=== PATIENT | female | born 1965 | race Caucasian/White ===

== ENCOUNTER 2020-01-09 15:29 | Emergency (ER) | payer BC ==
[2020-01-09 15:58] LABS: Influenza A Molecular Negative (Negative); Influenza B Molecular Negative (Negative)
--- NOTE | 2020-01-09 16:02 | ED ---
Influenza-Like Illness - HPI Summary HPI Summary: The patient is a 54-year-old female presenting to [facility] emergency department with a chief complaint of influenza-like symptoms since 01/04/2020. She reports that she visited her PCP when her symptoms began, and she was diagnosed with strep throat and was placed on Amoxicillin. Her throat pain has improved, but she is now suffering from fevers, severe headaches, photophobia and eye pain, and myalgias. There is increased neck pain than she experiences chronically. She called her PCP again yesterday and was told that these symptoms are also consistent with the strep throat, but she is concerned because she is unable to tolerate the pain. Symptoms are currently rated 8/10 in severity. She notes that she may have had the flu in December, but she was not tested. She also states that she often experiences headaches with sicknesses, and she suffers from sleeping disorders and pain in her neck. Past medical history significant for anxiety, right ovarian removal, tonsillectomy, . Nonsmoker, no alcohol use, no substance use. Medications reviewed. Allergies noted. - History of Current Complaint Chief Complaint: EDGeneral Time Seen by Provider: 01/09/20 15:47 Hx Obtained From: Patient Onset/Duration: Gradual Onset, Lasting Days, Still Present Severity: Moderate Associated Signs & Symptoms: Fever, Myalgia, Cough, Sore Throat, Headache - Allergy/Home Medications Allergies/Adverse Reactions: Allergies Allergy/AdvReac Type Severity Reaction Status Date / Time No Known Allergies Allergy Verified 01/09/20 15:38 PMH/Surg Hx/FS Hx/Imm Hx Endocrine/Hematology History: Denies: Hx Diabetes Cardiovascular History: Denies: Hx Hypercholesterolemia, Hx Hypertension, Hx Pacemaker/ICD Sensory History: Denies: Hx Hearing Aid Psychiatric History: Reports: Hx Anxiety Denies: Hx Panic Disorder - Surgical History Surgical History: Yes Surgery Procedure, Year, and Place: RT(?) OVARY REMOVED, ,TONSILS A CHILD, Infectious Disease History: No Infectious Disease History: Denies: Traveled Outside the [place] in Last 30 Days - Family History Known Family History: Negative: Cardiac Disease, Hypertension - Social History Alcohol Use: None Hx Substance Use: No Substance Use Type: Reports: None Hx Tobacco Use: No Smoking Status (MU): Never Smoked Tobacco Review of Systems Positive: Fever Positive: Photophobia, Other - bilateral eye pain Positive: Sore Throat Positive: Myalgia, Other - neck pain Positive: Headache All Other Systems Reviewed And Are Negative: Yes Physical Exam - Summary Physical Exam Summary: VITAL SIGNS: Reviewed. GENERAL: Patient is a well-developed and nourished female who is lying comfortable in the stretcher. Patient is not in any acute respiratory distress. HEAD AND FACE: No signs of trauma. No ecchymosis, hematomas or skull depressions. No sinus tenderness. EYES: PERRLA, EOMI x 2, No injected conjunctiva, no nystagmus. EARS: Hearing grossly intact. Ear canals and tympanic membranes are within normal limits. MOUTH: Dry oral mucosa. Pharyngeal erythema. No exudates. NECK: Supple, trachea is midline, no adenopathy, no JVD, no carotid bruit, no c- spine tenderness, neck with full ROM. CHEST: Symmetric, no tenderness at palpation. LUNGS: Clear to auscultation bilaterally. No wheezing or crackles. CVS: Regular rate and rhythm, S1 and S2 present, no murmurs or gallops appreciated. ABDOMEN: Soft, non-tender. No signs of distention. No rebound, no guarding, and no masses palpated. Bowel sounds are normal. EXTREMITIES: FROM in all major joints, no edema, no cyanosis or clubbing. NEURO: Alert and oriented x 3. No acute neurological deficits. Speech is normal and follows commands. SKIN: Dry and warm. GCS: 15. Triage Information Reviewed: Yes Vital Signs On Initial Exam: Initial Vitals Temp Pulse Resp BP Pulse Ox 101.7 F 106 19 143/106 97 01/09/20 15:34 01/09/20 15:34 01/09/20 15:34 01/09/20 15:34 01/09/20 15:34 Vital Signs Reviewed: Yes - Errol Coma Scale Best Eye Response: 4 - Spontaneous Best Motor Response: 6 - Obeys Commands Best Verbal Response: 5 - Oriented Coma Scale Total: 15 Procedures - Sedation Patient Received Moderate/Deep Sedation with Procedure: No Diagnostics - Vital Signs Vital Signs Temp Pulse Resp BP Pulse Ox 01/09/20 15:34 101.7 F 106 19 143/106 97 - Laboratory Lab Results: Lab Results 01/09/20 Range/Units 15:37 Influenza A (Rapid) Pending Influenza B (Rapid) Pending Result Diagrams: 01/09/20 16:24 01/09/20 16:24 Lab Statement: Any lab studies that have been ordered have been reviewed, and results considered in the medical decision making process. - CT Brain CT CT Interpretation Completed By: Radiologist Summary of CT Findings: Impression: No acute intracranial pathology. ED physician has reviewed this report. Re-Evaluation - Re-Evaluation First Eval Re-Evaluation Time: 16:05 Comment: Influenza negative. We will plan for meningitis workup with Rocephin and possible lumbar puncture if not improved. Second Eval Re-Evaluation Time: 19:10 Change: Improved Comment: Patient's headache has improved with medications. She declines a lumbar puncture at this time because her headache has resolved. We discussed results and plan for discharge. Flu Symptom Course/Dx - Course Assessment/Plan: The patient is a 54-year-old female presenting to [facility] emergency department with a chief complaint of influenza-like symptoms since 01/04. She reports that she visited her PCP when her symptoms began, and she was diagnosed with strep throat and was placed on Amoxicillin. Her throat pain has improved, but she is now suffering from fevers, severe headaches, photophobia and eye pain, and myalgias. There is increased neck pain than she experiences chronically. She called her PCP again yesterday and was told that these symptoms are also consistent with the strep throat, but she is concerned because she is unable to tolerate the pain. Symptoms are currently rated 8/10 in severity. She notes that she may have had the flu in December, but she was not tested. She also states that she often experiences headaches with illnesses , and she suffers from sleeping disorders and pain in her neck. Past medical history significant for anxiety, right ovarian removal, tonsillectomy, C- section. Nonsmoker, no alcohol use, no substance use. Medications reviewed. Allergies noted. In the ED course, the patient was placed on a shovel handle assembler, IV access was obtained, IV fluids started. Initially she was given Rocephin 2 gm IV. Blood test w/o a significant abnormality except for sodium of 134 and glucose of 104. Influenza A and B are negative. She was given Reglan, Benadryl, and morphine for the headache. Head CT impression: No acute intracranial pathology. After the patient was given medications, the patients symptoms have significantly improved. The patients pain has resolved. She reports that the headache and the neck pain are gone. She doesnt have any photophobia at this time. Patient declines a LP since the headache has resolved. She was advised to continue with treatment for the strep pharyngitis. At this point, I discussed all the findings and test results with the patient. Patient was instructed to return to the emergency room immediately if any of the symptoms return or worsen. Plan of care was discussed with the patient, and the patient understands and agrees. All questions were answered at patient satisfaction. Patient understands and agrees. Neurological exam before discharge: Patient is alert and oriented x 3. No acute neurological deficits. Patient's vital signs are stable. Patient is to follow up with PCP in the next 2 3 days. There were no further complaints or concerns. - Diagnoses Provider Diagnoses: Headache Discharge ED - Sign-Out/Discharge Documenting (check all that apply): Patient Departure - Patient will be discharged home. - Discharge Plan Condition: Stable Disposition: HOME Patient Education Materials: Acute Headache (DC) Referrals: Manisha Rain NP [Primary Care Provider] - 3 Days Additional Instructions: Follow up with your primary care provider in 2-3 days. Return to the emergency department for any new or worsening symptoms. - Billing Disposition and Condition Condition: STABLE Disposition: Home - Attestation Statements Document Initiated by Pat: Yes Documenting Scribe: Carmel Hooker Provider For Whom Pat is Documenting (Include Credential): Dr. Frankie Arellano MD Scribe Attestation: Carmel Cloud scribed for Dr. Frankie Arellano MD on 01/09/20 at 2142. Scribe Documentation Reviewed: Yes Provider Attestation: The documentation as recorded by the Carmel diaz accurately reflects the service I personally performed and the decisions made by me, Dr. Frankie Arellano MD Status of Scribbrittni Document: Viewed
[2020-01-09] MEDS ORDERED: cefTRIAXone(*) 2 GM in NS 0.9% 100 ML* 100 ML IV ONE (16:09)
[2020-01-09] MEDS ORDERED: Morphine 10 MG/ML VIAL (1 ml) IV ONE (16:09)
[2020-01-09] MEDS ORDERED: Metoclopramide IV* 5 MG/ML 2 ML VIAL IV ONE (16:09)
[2020-01-09] MEDS ORDERED: NS 0.9% 1000 ML** 1,000 ML IV ONE (16:09)
[2020-01-09] MEDS ORDERED: diPHENhydraMINE IV* 50 MG/ML 1 ml VIAL (BENADRYL) IV ONE (16:09)
[2020-01-09 16:38] LABS: ABS Eosinophils 0.1 10^3/ul (0-0.6); ABS Lymphocytes 1.8 10^3/ul (1.0-4.8); ABS Monocytes 0.6 10^3/ul (0-0.8); ABS Neutrophils 5.3 10^3/ul (1.5-7.7); Eosinophil % 1.2 %; Hematocrit 37 % (35-47); Lymphocyte % 23.4 %; Mean Corpuscular HGB Conc 35 g/dL (31-36); Mean Corpuscular Hemoglobin 29 pg (27-31); Mean Corpuscular Volume 83 fL (80-97); Mean Platelet Volume 6.5 fL (7.4-10.4); Platelet Count 287 10^3/uL (150-450); Red Blood Count 4.52 10^6 /uL (3.70-4.87); Red Cell Distribution Width 13 % (10-15); White Blood Count 7.8 10^3/uL (3.5-10.8)
--- OUTSIDE RECORDS SUMMARY | 2020-01-09 16:52 | XMS REPORT | Summary of Care ---
:1965 Author Organization [facility] Address [address] [place] [address] Care Team Providers Name Role Phone VeronicaTracy manzo Primary Care Provider Reason for Visit Reason Comments Sore Throat fever, sore throat, achy, BILLS, started Friday Encounter Details Date Type Department Care Team Description 01/06/2020 Office Visit [facility] Manisha Aparicio, Strep pharyngitis (Primary Dx); Practice [facility] Sore throat [address] [place] [address] [place] [address] [phone] Allergies No Known Allergiesdocumented as of this encounter (statuses as of 01/06/2020) Medications Medication Sig Dispensed Refills Start Date End Date Status mometasone [place] 1 [place] 1 Bottle 0 03/06/2019 Active (NASONEX) 50 in nose MCG/ACT Nasal DIRECTED. 2 SuspensionIndicati sprays in ons: Acute each nostril sinusitis, once daily recurrence not until specified, symptoms unspecified location sertraline TAKE 1 TABLET 90 Tab 3 04/16/2019 Active (ZOLOFT) 50 MG BY MOUTH Oral Tab DAILY DIRECTED MAY INCREASE TO 1.5 TABLETS AFTER 2 WEEKS Phentermine HCl Take 1 Cap by 30 Cap 1 09/30/2019 Active 37.5 MG Oral mouth DAILY. CapIndications: Max Daily BMI Amount: 37.5 30.0-30.9,adult mg. fluocinonide APPLY TO 180 mL 3 11/29/2019 Active (LIDEX) 0.05 % AFFECTED AREA Apply externally TWICE A DAY SolutionIndication s: Psoriasis of scalp amoxicillin Take 1 Tab by 20 Tab 0 01/06/2020 Active (AMOXIL, POLYMOX, mouth TWICE TRIMOX) 875 MG DAILY. Oral TabIndications: Strep pharyngitis levofloxacin Take 1 Tab by 10 Tab 0 03/06/2019 Discontinued (LEVAQUIN) 500 MG mouth DAILY 0 (Therapy Oral 0700 on Empty Completed) TabIndications: Stomach. 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 Disorders of bursae and tendons in shoulder region, unspecified 02/07/2015 Shoulder pain, left 01/24/2015 Rotator cuff tendonitis 01/24/2015 Ankle fracture, left 12/20/2014 Ankle pain, left 12/05/2014 Fx lateral malleolus-closed 12/05/2014 Hip pain, left 04/15/2014 Anxiety 05/12/2008 DEPRESSION 05/12/2008 documented as of this encounter (statuses as of 01/06/2020) Immunizations Name Administration Dates Next Due Influenza (IM) Preservative Free 09/22/2019, 10/27/2018, 10/14/2014, 09/05/2011 MMR VACCINE 09/30/2019 TDAP Vaccine 10/27/2018 documented as of this encounter Social History Tobacco Use Types Packs/Day Years Used Date Never Smoker 0 Smokeless Tobacco: Never Used Alcohol Use Drinks/Week oz/Week Comments Yes 0 Standard drinks or equivalent 0.0 rare Sex Assigned at Date Recorded Not on file Job Start Date Occupation Industry Not on file Not on file Not on file Travel History Travel Start Travel End No recent travel history available. documented as of this encounter Last Filed Vital Signs Vital Sign Reading Time Taken Comments Blood Pressure 120/78 01/06/2020 10:55 AM EST Pulse 102 01/06/2020 10:55 AM EST Temperature 38.1 01/06/2020 10:55 AM C (100.5 EST F) Respiratory Rate - - Oxygen Saturation 93% 01/06/2020 10:55 AM EST Inhaled Oxygen Concentration - - Weight 78 kg (172 lb) 01/06/2020 10:55 AM EST Height 162.6 cm (5' 4") 01/06/2020 10:55 AM EST Body Mass Index 29.52 01/06/2020 10:55 AM EST documented in this encounter Patient Instructions Patient InstructionsManisha Rain FNP - 01/06/2020 10:40 AM ESTSTrep test is positive. Off work today and tomorrow Begin antibiotic. Maintain good fluid intake and rest. Take OTC pain meds. documented in this encounter Progress Notes Manisha Rain FNP - 01/06/2020 10:40 AM EST PATIENT: Tiana Gamboa : 1965 DATE OF SERVICE: 01/06/2020 Chief Complaint Patient presents with Sore Throat fever, sore throat, achy, BILLS, started Friday SUBJECTIVE: Tiana Gamboa is a 54-y.o. female who is here with 3 days of sore throat, swollen neck glands, fever and achiness. She notes headache. No cough. No shortness of breath or chest pain. Shehas discomfort from throat into ears. No sinus or nasal congestion. No nausea or diarrhea. 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 fluocinonide (LIDEX) 0.05 % Apply externally Solution APPLY TO AFFECTED AREA TWICE A DAY mometasone (NASONEX) 50 MCG/ACT Nasal Suspension [place] 1 [place] in nose DIRECTED. 2 sprays in each nostril once daily until symptoms Phentermine HCl 37.5 MG Oral Cap Take 1 Cap by mouth DAILY. Max Daily Amount: 37.5 mg. sertraline (ZOLOFT) 50 MG Oral Tab TAKE 1 TABLET BY MOUTH DAILY DIRECTED MAY INCREASE TO 1.5 TABLETS AFTER 2 WEEKS No current facility-administered medications for this visit. OBJECTIVE: BP 120/78 (BP Location: Left arm, Patient Position: Sitting) | Pulse 102 | Temp 100.5 F (38.1 C) (Tympanic) | Ht 5' 4" (1.626 m) | Wt 172 lb (78 kg) | SpO2 93% | BMI 29.52 kg/m She is alert and appears ill. Ears normal. Throat and pharnyx with erythema. Rapid strep test is positive. Neck supple. Upper cervical glands tender. Not enlarged. Sinuses non tender. Chest is clear, no wheezing or rales. Normal symmetric air entry throughout both lung mcguire. Heart RRR. ASSESSMENT: ICD-9-CM ICD-10-CM 1. Strep pharyngitis 034.0 J02.0 amoxicillin (AMOXIL, POLYMOX, TRIMOX) 875 MG Oral Tab 2. Sore throat 462 J02.9 RAPID STREP A SCREEN W/REFLEX CULT IF NEG Patient Instructions STrep test is positive. Off work today and tomorrow Begin antibiotic. Maintain good fluid intake and rest. Take OTC pain meds. Author: SHREYA Samuels 01/06/2020 11:18 documented in this encounter Plan of Treatment Name Type Priority Associated Diagnoses Order Schedule RAPID STREP A SCREEN Lab Routine Sore throat 1 Occurrences starting W/REFLEX CULT IF NEG 01/06/2020 until 07/04/2020 Health Maintenance Due Date Last Done Comments ZOSTER IMMUNIZATION SERIES 2016 (1 of 2) MAMMOGRAM (SCREENING) 10/27/2019 10/27/2018, 08/16/2016, 07/26/2015, Additional history exists DEPRESSION SCREENING 09/30/2020 09/30/2019, 09/30/2019 DIABETES SCREENING 09/30/2020 09/30/2019, 10/27/2018, 08/15/2017, Additional history exists PAP SMEAR 10/27/2021 10/27/2018, 06/15/2015, 06/15/2015, Additional history exists LIPID DISORDER SCREENING 09/30/2024 09/30/2019, 08/15/2017, 06/15/2015, Additional history exists Colonoscopy 09/26/2026 09/26/2016 DTaP/Tdap/Td Vaccines (2 - 10/27/2028 10/27/2018 Tdap) INFLUENZA VACCINE Completed 09/22/2019, 10/27/2018, 10/14/2014, Additional history exists HEPATITIS A IMMUNIZATION Aged Out No longer eligible SERIES based on patient's age to complete this topic HPV IMMUNIZATION SERIES Aged Out No longer eligible based on patient's age to complete this topic MENINGOCOCCAL VACCINE IMM Aged Out No longer eligible based on patient's age to complete this topic PNEUMOCOCCAL 0-64 YRS Aged Out No longer eligible based on patient's age to complete this topic documented as of this encounter Goals Goal Patient Goal Associated Recent Patient-Stated? Author Type Problems Progress Depression Depression 0 (09/30/2019 gurvinder Dunn (PHQ-9) 8:11 AM EDT) SHREYA Dyer total score < 5 Note: This is an individualized treatment (depression) goal for Tiana Gamboa: Displayed above is your goal for a depression screening (PHQ-9) score that would indicate good control of your depression. Keep a regular sleep schedule Lifestyle No Manisha Rain FNP Note: This is an individualized lifestyle goal for Tiana Gamboa: Please maintain a regular sleep schedule. This may help with some symptoms of depression. Take all prescribed medications as Self-management No Manisha Rain FNP directed Note: This is an individualized self-management goal for Tiana Gamboa: Please take all prescribed medications as directed. 1. Do not skip doses. If you cannot afford your medications, talk with your doctor. 2. Use a pill reminder system such as a pill box if needed. Your pharmacist can help you with this. 3. Contact your Pharmacy 5 days before your medication runs out. If you cannot take your medications for any reasons, talk with your doctor. 4. Please bring all of your medication bottles and inhalers (or a list of all your medications/inhalers) with you to every visit. Potential barriers to meeting all of your care plan goals will continue to be addressed on an ongoing basis. documented as of this encounter Results Not on filedocumented in this encounter Visit Diagnoses Diagnosis Strep pharyngitis Streptococcal sore throat Sore throat Acute pharyngitis documented in this encounter documented as of this encounter Advance Directives Type Date Recorded Patient Proced Tech Explanation Advance Directives 10/09/2016 7:42 AM [facility] Proxy
[2020-01-09 16:55] LABS: Albumin 4.2 g/dL (3.2-5.2); Albumin/Globulin Ratio 1.3 (1-3); BUN/Creatinine Ratio 16.9 (8-20); EGFR African American 104.2 (>60); EGFR Non-African American 86.1 (>60); Globulin 3.2 g/dL (2-4); Potassium 3.7 mmol/L (3.5-5.0); Total Bilirubin 0.4 mg/dL (0.2-1.0); Total Protein 7.4 g/dL (6.4-8.9)
[2020-01-09 18:35] LABS: Erythrocyte Sed Rate 64 mm/Hr (0-29)
[2020-01-09 19:39] VITALS: BP 130/87
== END 2020-01-09 19:25 | disposition home or self-care (01) ==
LOC: ED 15:29
DX: R51 Headache (principal); R50.9 Fever, unspecified; M54.2 Cervicalgia; H53.149 Visual discomfort, unspecified; J02.9 Acute pharyngitis, unspecified; Z79.899 Other long term (current) drug therapy
CPT/HCPCS: 36415; 70450; 80053; 82375; 83605; 85025; 85652; 85730; 87040; 96365; 96375; 99284; J0696; J1200; J2270; J2765